=== PATIENT | female | born 1980 | race Caucasian/White ===

== ENCOUNTER 2022-03-13 21:34 | Emergency (ER) | payer SELFPAY ==
[~2022-03-13] VITALS: Ht 157.5 cm; Wt 45.0 kg
[2022-03-13] MEDS ORDERED: MORPHINE SULFATE 4 MG/ML CPJ (NOT FOR IM USE) IV STA (23:10)
[2022-03-13] MEDS ORDERED: ONDANSETRON HCL 4MG/2ML INJ IV STA (23:10)
[2022-03-13] MEDS ORDERED: SODIUM CHLORIDE 0.9% 1,000 ML IV ONE (23:15)
[2022-03-13 23:30] LABS: BASOPHILS % 0.3 % (0.0-2.0); EOSINOPHILS % 0.3 % (0.0-5.0); HEMATOCRIT. 36.8 % (36.0-48.0); HEMOGLOBIN. 12.7 g/dL (12.0-16.0); LYMPHOCYTES % 10.8 % (20.0-50.0); MEAN CORPUSCULAR HEMOGLOBIN 31.1 pg (28.0-32.0); MEAN CORPUSCULAR VOLUME 90.4 fL (81.0-99.0); MEAN PLATELET VOLUME 7.7 fl (7.4-10.4); MONOCYTES % 6.8 % (2.0-8.0); NEUTROPHILS % 81.8 % (40.0-76.0); PLATELET 234 x1000/uL (130-400); RED BLOOD CELL COUNT 4.07 mill/uL (4.2-5.4); RED CELL DISTRIBUTION WIDTH 12.8 % (11.6-14.6)
[2022-03-14 00:32] LABS: CHLORIDE 105 mEq/L (98-107)
[2022-03-14 03:39] VITALS: BP 121/80
[2022-03-14] MEDS ORDERED: ONDA4TAB50 MT (04:52)
== END 2022-03-14 05:22 | disposition home or self-care (01) ==
LOC: ER 21:46
DX: R10.9 Unspecified abdominal pain (principal); R11.10 Vomiting, unspecified; A05.9 Bacterial foodborne intoxication, unspecified; Z85.9 Personal history of malignant neoplasm, unspecified
CPT/HCPCS: 36415; 71045; 74176; 80053; 83605; 83690; 85025; 86850; 86900; 86901; 93005; 99285; J7030; J2270; J2405

== ENCOUNTER 2022-03-15 23:18 | Emergency (ER) | payer SELFPAY ==
[~2022-03-15] VITALS: Ht 160 cm; Wt 48.7 kg
[~2022-03-15 23:18] MED LIST: ONDA4TAB50 MT
[2022-03-16] MEDS ORDERED: MORPHINE SULFATE 4 MG/ML CPJ (NOT FOR IM USE) IV STA (01:17)
[2022-03-16] MEDS ORDERED: ONDANSETRON HCL 4MG/2ML INJ IV STA (01:17)
[2022-03-16 01:45] LABS: CHLORIDE 101 mEq/L (98-107)
[2022-03-16 01:47] LABS: HEMATOCRIT. 37.3 % (36.0-48.0); HEMOGLOBIN. 12.6 g/dL (12.0-16.0); LYMPHOCYTES % 14.7 % (20.0-50.0); MEAN CORPUSCULAR HEMOGLOBIN 30.4 pg (28.0-32.0); MEAN CORPUSCULAR VOLUME 89.8 fL (81.0-99.0); MEAN PLATELET VOLUME 7.4 fl (7.4-10.4); MONOCYTES % 4.2 % (2.0-8.0); NEUTROPHILS % 81.1 % (40.0-76.0); PLATELET 252 x1000/uL (130-400); RED BLOOD CELL COUNT 4.16 mill/uL (4.2-5.4); RED CELL DISTRIBUTION WIDTH 12.5 % (11.6-14.6)
[2022-03-16 02:45] LABS: CLARITY URINE CLEAR (CLEAR); COLOR URINE YELLOW (YELLOW); KETONES URINE 4+ (NEGATIVE); LEUKOCYTE ESTERASE URINE 1+ (NEGATIVE); NITRITE URINE NEGATIVE (NEGATIVE); OCCULT BLOOD URINE NEGATIVE (NEGATIVE); PH URINE 8.5 (4.5-8.0); PROTEIN URINE 1+ (NEGATIVE); SPECIFIC GRAVITY URINE 1.027 (1.005-1.030)
[2022-03-16] MEDS ORDERED: SODIUM CHLORIDE 0.9% 500 ML IV ONE (03:00)
[2022-03-16] MEDS ORDERED: NITROFURANTOIN 100MG M/M CAPSULE PO ONE (03:00)
[2022-03-16] MEDS ORDERED: HYDR-4001 MT (04:17)
[2022-03-16] MEDS ORDERED: NITR-87 MT (04:17)
[2022-03-16] MEDS ORDERED: ACET-2708 MT (04:18)
[2022-03-16 04:50] VITALS: BP 115/75
== END 2022-03-16 04:45 | disposition home or self-care (01) ==
LOC: ER 23:18
DX: R10.2 Pelvic and perineal pain (principal); M54.50 Low back pain, unspecified; R11.2 Nausea with vomiting, unspecified; N39.0 Urinary tract infection, site not specified; Z90.710 Acquired absence of both cervix and uterus; Z85.41 Personal history of malignant neoplasm of cervix uteri; Z90.49 Acquired absence of other specified parts of digestive tract; Z88.6 Allergy status to analgesic agent
CPT/HCPCS: 36415; 80053; 81003; 81025; 83690; 85025; 96361; 96374; 96375; 99284; J2270; J2405